=== PATIENT | male | born 1955 | race Caucasian/White ===

== ENCOUNTER 2021-03-12 06:03 | Inpatient (IN) | payer OTHER, MEDICARE, SELFPAY ==
[2021-03-08 12:37] LABS: BASOPHILS % (AUTO) 0.6 % (0.0-2.0); EOSINOPHILS # (AUTO) 0.1 K/uL (0.0-0.4); EOSINOPHILS % (AUTO) 2.1 % (0.0-4.0); HEMATOCRIT 40.3 % (36-54); LYMPHOCYTES # (AUTO) 1.6 K/uL (1.0-5.5); LYMPHOCYTES % (AUTO) 32.1 % (20.5-51.5); MEAN CORPUSCULAR HEMOGLOBIN 28 pg (27-31); MEAN CORPUSCULAR HGB CONC 32 % (32-36); MEAN CORPUSCULAR VOLUME 86 fL (79.0-98.0); MONOCYTES # (AUTO) 0.5 K/uL (0.0-1.0); MONOCYTES % (AUTO) 10.4 % (1.7-9.3); NEUTROPHILS # (AUTO) 2.7 K/uL (1.8-7.7); NEUTROPHILS % (AUTO) 54.8 % (40.0-70.0); PLATELET COUNT (AUTO) 192 K/uL (130-430); RED BLOOD CELL COUNT(AUTO) 4.71 MIL/uL (4.2-6.2); RED CELL DISTRIBUTION WIDTH 17.1 % (9.0-15.0)
[2021-03-08 12:56] LABS: CALCIUM 8.8 mg/dL (8.4-11.0); CREATININE 0.91 mg/dL (0.55-1.30); POTASSIUM 5.1 mmol/L (3.5-5.1)
[~2021-03-12] VITALS: Ht 180.3 cm; Wt 115.7 kg
[2021-03-12] MEDS ORDERED: CEFAZOLIN SOD 2 GM in D5W 50 ML IV ONE (07:00)
[2021-03-12] MEDS ORDERED: TAMS0.4C96 PO (07:15)
[2021-03-12] MEDS ORDERED: METO50TA7 PO (07:15)
[2021-03-12] MEDS ORDERED: SACU1TAB7 PO (07:15)
[2021-03-12] MEDS ORDERED: MONT10TA33 PO (07:15)
[2021-03-12] MEDS ORDERED: fentaNYL CITRATE 250 MCG/5 ML AMP IV ONE (08:26)
[2021-03-12] MEDS ORDERED: ETOMIDATE 20 MG/ 10 ML VIAL (AMIDATE) IVP ONE (08:26)
[2021-03-12] MEDS ORDERED: SEVOFLURANE 15 MIN GAS INH ONE (08:26)
[2021-03-12] MEDS ORDERED: GLYCOPYRROLATE 0.2 MG/ML VIAL IJ ONE (08:26)
[2021-03-12] MEDS ORDERED: NS IRRIG SOLN 1000 ML IR ONE (08:26)
[2021-03-12] MEDS ORDERED: MIDAZOLAM HCL 5 MG/5 ML VIAL IVP ONE (08:26)
[2021-03-12] MEDS ORDERED: ePHEDrine sulfate 50 MG/ML VIAL IVP ONE (08:26)
[2021-03-12] MEDS ORDERED: LR 1,000 ML IV.SOLN IV ONE (08:26)
[2021-03-12] MEDS ORDERED: SUCCINYLCHOLINE CHLORIDE 20 MG/ML(QUELICIN) IVP ONE (08:26)
[2021-03-12] MEDS ORDERED: LIDOCAINE 1% 10 MG/ML, 20 ML MDV INJ ONE (08:26)
[2021-03-12] MEDS ORDERED: BACITRACIN ZINC 15 GM TOPICAL OINTMENT TP ONE (08:26)
[2021-03-12] MEDS ORDERED: LIDOCAINE/EPI 1% 1:100000 20 ML VIAL INJ ONE (08:26)
[2021-03-12] MEDS ORDERED: ONDANSETRON HCL 4 MG/2 ML VIAL IVP ONE (08:26)
[2021-03-12] MEDS ORDERED: ONDANSETRON HCL 4 MG/2 ML VIAL IVP PRN ×2 (11:15→13:45)
[2021-03-12] MEDS ORDERED: LR 1,000 ML IV SCH (11:15)
[2021-03-12] MEDS ORDERED: HYDROmorphone 1 INJ. 1 MG/ML CARTRIDGE IVP PRN ×2 (11:15)
[2021-03-12] MEDS ORDERED: HYDROmorphone 2 MG/ML VIAL IVP PRN (11:15)
[2021-03-12] MEDS ORDERED: KETOROLAC TROMETHAMINE 30 MG VIAL IVP PRN (11:15)
[2021-03-12] MEDS ORDERED: HYDROcodone/ACETAMIN 5-325 MG TAB (NORCO/ VICODIN) PO PRN (13:45)
[2021-03-12] MEDS ORDERED: NALOXONE HCL 0.4 MG/ML AMP (NARCAN) IVP PRN (13:45)
[2021-03-12] MEDS ORDERED: KCL 20 mEq in D5/0.45NS 1000mL 1,000 ML IV SCH (13:45)
[2021-03-12] MEDS ORDERED: ONDANSETRON 4 MG ODT TAB PO PRN (13:45)
[2021-03-12 15:15] VITALS: BP_SYST 118
[2021-03-12 15:20] VITALS: BP_SYST 118
[2021-03-12] MEDS ORDERED: MONTELUKAST 10 MG TABLET PO SCH (18:00)
[2021-03-12] MEDS: D5/0.45 NS 1,000 ML IV SCH ×2 (18:10→23:55)
[2021-03-12] MEDS ORDERED: TAMSULOSIN HCL 0.4 MG CAP PO ONE (19:00)
[2021-03-12 20:00] VITALS: BP_SYST 113
[2021-03-12] MEDS: ENTRESTO PO SCH (20:11)
[2021-03-12] MEDS: CALCIUM 500 MG/TAB PO SCH (20:12)
[2021-03-12] MEDS ORDERED: NON-FORMULARY MEDICATION (Sacubitril/Valsartan (Entresto 49 mg-51 mg Tablet) 1 EACH) PO SCH (21:00)
[2021-03-12 22:25] LABS: ALBUMIN 3.4 g/dL (3.4-4.8); CALCIUM 8.1 mg/dL (8.4-11.0)
[2021-03-13 00:42] VITALS: BP_SYST 115
[2021-03-13] MEDS ORDERED: LEVOTHYROXINE SODIUM 0.15 MG TABLET PO SCH (07:00)
[2021-03-13 07:15] LABS: ALBUMIN 3.7 g/dL (3.4-4.8); CALCIUM 8.4 mg/dL (8.4-11.0)
[2021-03-13 08:03] VITALS: BP_SYST 129; BP_SYST 88
[2021-03-13] MEDS: CALCIUM 500 MG/TAB PO SCH ×2 (08:53→15:26)
[2021-03-13] MEDS: ENTRESTO PO SCH (08:58)
[2021-03-13] MEDS ORDERED: METOPROLOL SUCCINATE 50 MG TAB.SR.24H (TOPROL XL) PO SCH (09:00)
[2021-03-13 11:29] VITALS: BP_SYST 121
[2021-03-13 14:11] LABS: ALBUMIN 3.5 g/dL (3.4-4.8); CALCIUM 8.6 mg/dL (8.4-11.0)
[2021-03-13 15:15] VITALS: BP_SYST 133
[2021-03-13] MEDS ORDERED: LEVO25TA7 PO (15:37)
[2021-03-13] MEDS ORDERED: OSCD500 PO (15:37)
[2021-03-13 15:44] VITALS: BP_SYST 133
[2021-03-13] MEDS ORDERED: TAMSULOSIN HCL 0.4 MG CAP PO SCH (21:00)
== END 2021-03-13 16:30 | disposition home or self-care (01) | DRG 627 ==
LOC: SMU 06:03 → STU 15:26
PROVIDERS: ADMIT Otolaryngology; ATTEND Otolaryngology
PROC: 0GTG0ZZ Resection of Left Thyroid Gland Lobe, Open Approach (ICD-10-PCS; 2021-03-12)
PROC: 0GTH0ZZ Resection of Right Thyroid Gland Lobe, Open Approach (ICD-10-PCS; principal; 2021-03-12 08:26)
DX: E04.2 Nontoxic multinodular goiter (principal); Z20.822 Contact with and (suspected) exposure to COVID-19
CPT/HCPCS: 36415; 80048; 82040; 82310; 83970; 85025; 87081; 88307; G0378; J0330; J0690; J2001; J2250; J2405; J3010; J3490; J7060; J7120; U0003